=== PATIENT | male | born 1995 | race American Indian/Alaskan Native ===

== ENCOUNTER 2016-07-03 08:47 | Emergency (ER) | payer MEDICARE ==
[2016-07-03 08:57] VITALS: BP 133/81
[2016-07-03] MEDS ORDERED: PROVENTIL IH ONE (09:24)
[2016-07-03] MEDS ORDERED: DELTASONE PO ONE (09:26)
--- NOTE | 2016-07-03 09:27 | Emergency Department Report ---
Minor Respiratory - HPI Chief Complaint: Upper Respiratory Infection Stated Complaint: COUGH Duration: 4 Days Severity: moderate Minor Respiratory: Yes Able to Tolerate Fluids, Yes Cough, No Rhinorrhea, No Sore Throat, No Ear Pain, No Sick Contacts, No Hemoptysis, No Chest Pain, No Shortness of Breath, No Fever Other History: 21-year-old -Turkish male with a past medical history of hyperlipidemia, GERD, IBS, bipolar, recovering drug addict comes in today for a cough for 4-5 days. Patient reports he is currently staying at [facility]. Patient denies any fever denies any chills does report of nausea and just feeling tight. Patient has tried no [id number] medication. ED Review of Systems ROS: Stated complaint: COUGH Other details as noted in HPI ED Past Medical Hx - Past Medical History Previous Medical History?: Yes Hx Psychiatric Treatment: Yes (Drug abuse, Bipolar) - Surgical History Past Surgical History?: Yes Additional Surgical History: Right hand surgery - Social History Smoking Status: Current Every Day Smoker Substance Use Type: Prescribed - Medications Home Medications: Home Medications Medication Instructions Recorded Confirmed Last Taken Type ALBUTEROL Inhaler [ProAir HFA 2 puff IH QID PRN #1 inhalation 07/03/16 Unknown Rx Inhaler] Benztropine [Cogentin] 1 mg PO BID 07/03/16 07/03/16 07/03/16 History carBAMazepine [TEGretol] 200 mg PO Q12HR 07/03/16 07/03/16 07/03/16 History guaiFENesin DM [Robitussin Dm] 10 ml PO Q6HR #120 udc 07/03/16 Unknown Rx traZODone [Desyrel] 100 mg PO QHS 07/03/16 07/03/16 07/02/16 History Minor Respiratory Exam - Exam General: Vital signs noted. No distress. Alert and acting appropriately. HEENT: Yes Moist Mucous Membranes, No Pharyngeal Erythema, No Pharyngeal Exudates, No Rhinorrhea, No Conjuctival Injection, No Frontal Tenderness, No Maxillary Tenderness Ear: Neither TM Bulge, Neither TM Erythema, Neither EAC Pain, Neither EAC Discharge Neck: Yes Supple, No Adenopathy Lungs: Yes Wheezes (expiratory wheeze), Yes Ronchi, Yes Stridor, No Cough, No Labored Respirations, No Retractions, No Use of Accessory Muscles, No Other Abnormal Lung Sounds Heart: Yes Regular, No Murmur Abdomen: Yes Normal Bowel Sounds, No Tenderness, No Peritoneal Signs Skin: No Rash, No Edema Neurologic: Alert and oriented, no deficits. Musculoskeletal: Unremarkable. ED Course Vital Signs 07/03/16 08:54 Temperature 98.1 F Pulse Rate 93 H Respiratory 20 Rate Blood Pressure 133/81 O2 Sat by Pulse 97 Oximetry - Reevaluation(s) Reevaluation #1: 07/03/16 10:35 Patient reports that he feels much better after having the nebulizer treatment. ED Medical Decision Making - Medical Decision Making Patient has been evaluated by this provider fast tach. Discussed the patient that I would give him a albuterol treatment and we would discharge patient to go home on and inhaler. Patient verbalized understanding Critical care attestation.: If time is entered above; I have spent that time in minutes in the direct care of this critically ill patient, excluding procedure time. ED Disposition Clinical Impression: Cough Disposition: DISCHARGED TO HOME OR SELFCARE Is pt being admited?: No Does the pt Need Aspirin: No Condition: Stable Instructions: Reactive Airways Disease (ED) Additional Instructions: Please use albuterol inhaler as prescribed. Take the cough medication as prescribed. Follow up with her primary care provider I have listed one below if you do not have one. Prescriptions: ALBUTEROL Inhaler [ProAir HFA Inhaler] 2 puff IH QID PRN #1 inhalation PRN Reason: Shortness Of Breath guaiFENesin DM [Robitussin Dm] 10 ml PO Q6HR #120 [facility] [place]errals: PRIMARY CARE [Primary Care Provider] - 3-5 Days [facility] [Provider Group] - 3-5 Days Forms: Work/School Release Form(ED)
== END 2016-07-03 10:51 | disposition home or self-care (01) ==
LOC: ED 08:47
DX: R05 Cough (principal); F31.9 Bipolar disorder, unspecified; F17.200 Nicotine dependence, unspecified, uncomplicated
CPT/HCPCS: 94640; 99283; J7512

== ENCOUNTER 2019-07-18 15:19 | Emergency (ER) | payer MEDICARE ==
--- NOTE | 2019-07-18 15:50 | Event Note ---
Date: 07/18/19 Verbal report received from emergency medical services 24-year-old gentleman brought to the hospital by EMS with a complaint of heroin overdose, nontraumatic, found in bed, apparently by significant other, improved with Narcan. In the emergency room, the patient is sleepy but arousable, moving 4 extremities and protecting his airway at this time. Intention of overdose is unknown at this time. He is placed on a room, on a monitor, as needed Narcan needed, appropriate medications and orders have been initiated. Vital Signs 07/18/19 15:43 Temperature 97.6 F Pulse Rate 112 H Respiratory 20 Rate Blood Pressure 113/52 [Left] O2 Sat by Pulse 97 Oximetry
--- NOTE | 2019-07-18 16:34 | Emergency Department Report ---
History of Present Illness - General Chief Complaint: Overdose Stated Complaint: OD Time Seen by Provider: 07/18/19 16:05 Source: patient, EMS Mode of arrival: Stretcher Limitations: No Limitations - History of Present Illness Initial Comments: Patient is a 24-year-old male that presents emergency room with complaints of overdose on heroin. Patient states he is a drug addict to heroin. Patient states he is overdosed a few times. Patient states he is not sure how much he took. Patient states he was given Narcan by EMS and he woke up. Patient denies chest pain. Patient denies shortness of breath. Patient denies fever and chills. Patient denies confusion. Patient states he is not having pain. Patient states he uses IV heroin. Patient states she has a history of high cholesterol GERD and hepatitis C. patient states he desires rehab. Patient denies recent travel. Patient denies recent international travel. Patient denies exposure to the novel coronavirus. Patient denies sick contacts. Patient denies fever and chills. Patient denies cough. Patient denies diarrhea. Patient denies coming in contact with anybody with symptoms of the novel coronavirus. Complaint: accidental overdose -: Sudden Context: Accidental Overdose: wanted to get high Treatments Prior to Arrival: oxygen, narcan - Related Data Home Medications Medication Instructions Recorded Confirmed Last Taken Benztropine [Cogentin] 1 mg PO BID 07/03/16 07/03/16 07/03/16 carBAMazepine [TEGretol] 200 mg PO Q12HR 07/03/16 07/03/16 07/03/16 traZODone [Desyrel] 100 mg PO QHS 07/03/16 07/03/16 07/02/16 Previous Rx's Medication Instructions Recorded Last Taken Type Albuterol INH(or & Nicu Only) 2 puff IH QID PRN #1 inhalation 07/03/16 Unknown Rx [ProAir HFA Inhaler] guaiFENesin DM [Robitussin Dm] 10 ml PO Q6HR #120 udc 07/03/16 Unknown Rx Allergies Allergy/AdvReac Type Severity Reaction Status Date / Time No Known Allergies Allergy Verified 07/18/19 15:47 ED Review of Systems ROS: Stated complaint: OD Other details as noted in HPI Constitutional: denies: chills, fever Eyes: denies: eye pain, eye discharge, vision change ENT: denies: ear pain, throat pain Respiratory: denies: cough, shortness of breath, wheezing Cardiovascular: denies: chest pain, palpitations Endocrine: no symptoms reported Gastrointestinal: denies: abdominal pain, nausea, diarrhea Genitourinary: denies: urgency, dysuria Musculoskeletal: denies: back pain, joint swelling, arthralgia Skin: denies: rash, lesions Neurological: denies: headache, weakness, paresthesias Psychiatric: denies: anxiety, depression Hematological/Lymphatic: denies: easy bleeding, easy bruising ED Past Medical Hx - Past Medical History Previous Medical History?: Yes Hx GERD: Yes Hx Psychiatric Treatment: Yes (Drug abuse, Bipolar) Additional medical history: High cholesterol, hep C - Surgical History Past Surgical History?: Yes Additional Surgical History: Right hand surgery - Family History Family history: no significant - Social History Smoking Status: Never Smoker Substance Use Type: Alcohol, Heroin, Methamphetamines - Medications Home Medications: Home Medications Medication Instructions Recorded Confirmed Last Taken Type Albuterol INH(or & Nicu Only) 2 puff IH QID PRN #1 inhalation 07/03/16 Unknown Rx [ProAir HFA Inhaler] Benztropine [Cogentin] 1 mg PO BID 07/03/16 07/03/16 07/03/16 History carBAMazepine [TEGretol] 200 mg PO Q12HR 07/03/16 07/03/16 07/03/16 History guaiFENesin DM [Robitussin Dm] 10 ml PO Q6HR #120 udc 07/03/16 Unknown Rx traZODone [Desyrel] 100 mg PO QHS 07/03/16 07/03/16 07/02/16 History ED Physical Exam - General Limitations: No Limitations General appearance: alert, in no apparent distress - Head Head exam: Present: atraumatic, normocephalic - Eye Eye exam: Present: normal appearance - ENT ENT exam: Present: mucous membranes moist - Neck Neck exam: Present: normal inspection - Respiratory Respiratory exam: Present: normal lung sounds bilaterally. Absent: respiratory distress, wheezes, rales - Cardiovascular Cardiovascular Exam: Present: regular rate, normal rhythm. Absent: systolic murmur, diastolic murmur, rubs, gallop - GI/Abdominal GI/Abdominal exam: Present: soft, normal bowel sounds - Rectal Rectal exam: Present: deferred - Extremities Exam Extremities exam: Present: normal inspection - Back Exam Back exam: Present: normal inspection - Neurological Exam Neurological exam: Present: alert, oriented X3 - Psychiatric Psychiatric exam: Present: normal affect, normal mood - Skin Skin exam: Present: warm, dry, intact, normal color. Absent: rash ED Course Vital Signs 07/18/19 07/18/19 07/18/19 15:36 15:43 15:45 Temperature 97.6 F Pulse Rate 119 H 112 H 106 H Respiratory 20 19 Rate Blood Pressure 103/53 Blood Pressure 113/52 [Left] O2 Sat by Pulse 97 99 Oximetry 07/18/19 07/18/19 07/18/19 16:00 16:16 16:19 Temperature Pulse Rate 107 H 120 H Respiratory 13 20 Rate Blood Pressure 97/54 118/67 Blood Pressure [Left] O2 Sat by Pulse 100 97 100 Oximetry 07/18/19 07/18/19 18:45 21:16 Temperature Pulse Rate 100 H 90 Respiratory 17 17 Rate Blood Pressure Blood Pressure 142/71 127/64 [Left] O2 Sat by Pulse 97 96 Oximetry - Reevaluation(s) Reevaluation #1: Patient off oxygen. Patient awake alert and oriented. We will continue to monitor patient. Mental health is going to see the patient. 07/18/19 17:00 Reevaluation #2: Patient became hypoxic and increased lethargy. Patient is easily arousable and answers questions appropriately. Patient's speech is a little more slurred. Patient was given fluids and another dose of Narcan. Patient placed on oxygen. 07/18/19 18:15 Reevaluation #3: Patient given a total of 0.5 mg of Narcan. Patient's oxygen improved. Patient is awake again. Patient is awake alert and oriented x3. We will continue to monitor patient. 07/18/19 18:44 Reevaluation #4: Patient is currently 96%. Patient is completely awake alert and oriented. Patient states he is feeling better. 07/18/19 19:22 Reevaluation #5: Patient sleeping again. Patient given another 0.3 of Narcan. Patient's oxygen saturation stable. 07/18/19 20:00 Patient awake alert and oriented again. Patient states he is ready to go. Patient gave us urine and we will do a UDS and a UA. 07/18/19 20:36 Patient awake alert and oriented. Patient's oxygen stable. Patient answering questions appropriately. 07/18/19 20:46 I discussed all results and clinical findings with patient. I discussed plan of care with patient. Patient agrees with plan of care. Patient is stable for discharge. Patient will be discharged home. Patient given discharge instru ctions. Patient voiced understanding of discharge instructions. 07/18/19 20:58 ED Medical Decision Making - Lab Data Result diagrams: 07/18/19 16:21 07/18/19 16:21 - EKG Data -: EKG Interpreted by Me EKG shows normal: sinus rhythm, axis, intervals, QRS complexes, ST-T waves Rate: tachycardia - Medical Decision Making Patient is a 24-year-old male that presents emergency room with complaints of an accidental heroin overdose. Patient was given Narcan by EMS. Patient was given Narcan in the ER. Patient responded well to treatment. Patient remained alert and oriented after his last dose of Narcan. Patient requested rehab. Patient was given resources. Patient encouraged to contact 1 of the facilities in his discharge instructions. Patient's labs were essentially unremarkable. Patient was given fluids. - Differential Diagnosis Overdose, drug abuse Critical Care Time: Yes Critical care time in (mins) excluding proc time.: 45 Critical care attestation.: If time is entered above; I have spent that time in minutes in the direct care of this critically ill patient, excluding procedure time. Critical Care Time: 45 minutes ED Disposition Clinical Impression: Polysubstance abuse Heroin overdose Qualifiers: Encounter type: initial encounter Injury intent: accidental or unintentional Qualified Code(s): T40.1X1A - Poisoning by heroin, accidental (unintentional), initial encounter Disposition: DC-01 TO HOME OR SELFCARE Is pt being admited?: No Does the pt Need Aspirin: No Condition: Stable Instructions: Narcotic Abuse (ED) Additional Instructions: Patient to follow-up with primary care in 2 to 3 days. Patient to follow-up with a rehabilitation center as soon as possible. Patient to contact 1 of the numbers below. Patient to rest. Patient to increase water. Patient to avoid drug use. Patient to take Tylenol or ibuprofen as needed for pain. Patient to return to the ER if condition worsens, changes or new symptoms arise. In case of an emergency, please contact the following numbers: ID Crisis and Access Line: Number: Crisis Text Line: (Text START) Number: [id number] Suicide Prevention Line: Number: Emergency Number: 911 SUBSTANCE ABUSE PROGRAMS: [facility] Address: [address] [place] [address] [facility]: Address: [address] [place] [address] [facility]: Address: [address] [place] [address] [facility]: Address: [address] [place] [address] [facility]: Address: [address] [place] [address] [facility] Address: [address] [place] [id number]. Please contact above numbers to attempt placement into free based program. [facility], [facility] [address] [place] [place], [place] [id number] Carlos Cage MD: [address] [place], [place] [id number] [facility]: [address] [place], [place] [id number] [place] [address] [phone] [facility]: [address] [facility] [place], [place] [id number] [phone] [facility]: [address] [place], [place] Jaspal Ayon MD: [address] [facility] [id number] [facility]: [address] [facility] [address] [place], [place] [id number] [phone] ID CRISIS AND ACCESS LINE: [phone] Referrals: TINO GUTIERREZ MD [Primary Care Provider] - 2-3 Days Time of Disposition: 21:01
[2019-07-18 16:58] LABS: BUN/Creatinine Ratio 12; Blood Urea Nitrogen 14 mg/dL (9-20); Calcium 8.6 mg/dL (8.4-10.2); Hemolysis Index 16
[2019-07-18 16:59] LABS: Hemoglobin 15.1 gm/dl (11.8-15.2); Mean Corpuscular HGB Conc 32 % (32-34); Mean Corpuscular Volume 80 fl (84-94); Platelet Count 354 K/mm3 (140-440); Red Blood Count 5.86 M/mm3 (3.65-5.03); Red Cell Distribution Width 13.9 % (13.2-15.2)
[2019-07-18] MEDS ORDERED: SODIUM CHLORIDE 0.9% 1000 ML 1,000 ML IV ONE ×2 (17:18→20:00)
[2019-07-18] MEDS: NALOXONE 0.4 MG/1 ML INJ IV PRN ×9 (18:24→20:01)
[2019-07-18 20:49] LABS: Bacteria,Urine 1+ /HPF (Negative); Bilirubin,Urine NEG (Negative); Blood,Urine SM (Negative); Color,Urine Yellow (Yellow); Mucus,Urine 2+ /HPF; Urobilinogen,Urine < 2.0 mg/dL (<2.0)
[2019-07-18 20:54] LABS: Benzodiazepines Screen,Urine PRESUMPTIVE NEGATIVE; Cannabinoid Screen,Urine PRESUMPTIVE NEGATIVE; Methadone Screen,Urine PRESUMPTIVE NEGATIVE
[2019-07-18 21:05] LABS: Amphetamine Screen,Urine PRESUMPTIVE POSITIVE; Cocaine Screen,Urine PRESUMPTIVE POSITIVE; Opiate Screen,Urine PRESUMPTIVE POSITIVE
[2019-07-18 21:17] VITALS: BP 127/64
== END 2019-07-18 21:17 | disposition home or self-care (01) ==
LOC: ED 15:19
DX: T40.1X1A Poisoning by heroin, accidental (unintentional), initial encounter (principal); F19.10 Other psychoactive substance abuse, uncomplicated; K21.9 Gastro-esophageal reflux disease without esophagitis; F31.9 Bipolar disorder, unspecified; Z98.890 Other specified postprocedural states; Z79.899 Other long term (current) drug therapy
CPT/HCPCS: 36415; 80048; 80307; 81001; 82550; 83735; 85027; 87086; 93005; 99291; J2310; J7030; 80320; G0480

== ENCOUNTER 2019-08-02 22:19 | Emergency (ER) | payer MEDICARE ==
[2019-08-02] MEDS ORDERED: ONDANSETRON 4 MG ODT TAB PO ONE (22:36)
--- NOTE | 2019-08-02 22:42 | Emergency Department Report ---
ED Shortness of Breath HPI - General Chief Complaint: Dyspnea/Respdistress Stated Complaint: FATIGUE, SHORTNESS OF BREATH, NAUSEA Time Seen by Provider: 08/02/19 22:30 Source: patient Mode of arrival: Stretcher Limitations: No Limitations - History of Present Illness Initial Comments: Mr. Pulido is a 24 yo male with hx of heroin dependence who presents with shortness of breath and fatigue via EMS. He was concerned about possible COVID 19 exposure. He has a roommate who was recently hospitalized for unknown reason. He wants to ensure that he does not have COVID infection. Denies fever or cough. MD Complaint: shortness of breath -: Gradual, days(s) (1) Severity: mild Consistency: constant Improves With: nothing Worsens With: nothing Associated Symptoms: denies other symptoms - Related Data Home Medications Medication Instructions Recorded Confirmed Last Taken Benztropine [Cogentin] 1 mg PO BID 07/03/16 07/03/16 07/03/16 carBAMazepine [TEGretol] 200 mg PO Q12HR 07/03/16 07/03/16 07/03/16 traZODone [Desyrel] 100 mg PO QHS 07/03/16 07/03/16 07/02/16 Previous Rx's Medication Instructions Recorded Last Taken Type Albuterol INH(or & Nicu Only) 2 puff IH QID PRN #1 inhalation 07/03/16 Unknown Rx [ProAir HFA Inhaler] guaiFENesin DM [Robitussin Dm] 10 ml PO Q6HR #120 udc 07/03/16 Unknown Rx Allergies Allergy/AdvReac Type Severity Reaction Status Date / Time No Known Allergies Allergy Verified 07/18/19 15:47 ED Review of Systems ROS: Stated complaint: FATIGUE, SHORTNESS OF BREATH, NAUSEA Other details as noted in HPI Comment: All other systems reviewed and negative Constitutional: malaise. denies: chills, fever Respiratory: shortness of breath. denies: cough Cardiovascular: denies: chest pain Gastrointestinal: nausea ED Past Medical Hx - Past Medical History Previous Medical History?: Yes Hx GERD: Yes Hx Psychiatric Treatment: Yes (Drug abuse, Bipolar) Additional medical history: High cholesterol, hep C - Surgical History Past Surgical History?: Yes Additional Surgical History: Right hand surgery - Social History Smoking Status: Current Every Day Smoker Substance Use Type: None - Medications Home Medications: Home Medications Medication Instructions Recorded Confirmed Last Taken Type Albuterol INH(or & Nicu Only) 2 puff IH QID PRN #1 inhalation 07/03/16 Unknown Rx [ProAir HFA Inhaler] Benztropine [Cogentin] 1 mg PO BID 07/03/16 07/03/16 07/03/16 History carBAMazepine [TEGretol] 200 mg PO Q12HR 07/03/16 07/03/16 07/03/16 History guaiFENesin DM [Robitussin Dm] 10 ml PO Q6HR #120 udc 07/03/16 Unknown Rx traZODone [Desyrel] 100 mg PO QHS 07/03/16 07/03/16 07/02/16 History ED Physical Exam - General Limitations: No Limitations General appearance: alert, in no apparent distress - Head Head exam: Present: atraumatic, normocephalic - Eye Eye exam: Present: normal appearance - ENT ENT exam: Present: mucous membranes moist - Neck Neck exam: Present: normal inspection, full ROM - Respiratory Respiratory exam: Present: normal lung sounds bilaterally. Absent: respiratory distress, wheezes, rales, rhonchi - Cardiovascular Cardiovascular Exam: Present: regular rate, normal rhythm, normal heart sounds. Absent: systolic murmur, diastolic murmur, rubs, gallop - GI/Abdominal GI/Abdominal exam: Present: soft, normal bowel sounds. Absent: distended, tenderness, guarding, rebound - Rectal Rectal exam: Present: deferred - Extremities Exam Extremities exam: Present: normal inspection - Neurological Exam Neurological exam: Present: alert, oriented X3 - Psychiatric Psychiatric exam: Present: normal affect, normal mood - Skin Skin exam: Present: warm, dry, intact, normal color. Absent: rash ED Medical Decision Making - Radiology Data Radiology results: report reviewed Chest radiograph 2 view PA lateral: No acute findings according to radiology impression - Medical Decision Making Mr. Pulido appears well without respiratory distress or pneumonia. I provided education regarding COVID 19. I recommended self isolation and distancing from roommate. Discharged home. Critical care attestation.: If time is entered above; I have spent that time in minutes in the direct care of this critically ill patient, excluding procedure time. ED Disposition Clinical Impression: Viral syndrome Disposition: - TO HOME OR SELFCARE Is pt being admited?: No Does the pt Need Aspirin: No Condition: Stable Instructions: COVID-19 Referrals: JAIME MONTERO MD [Staff Physician] - 3-5 Days
--- NOTE | 2019-08-02 23:02 | XRay Report ---
CHEST 2 VIEWS INDICATION / CLINICAL INFORMATION: MAIN: shortness of breath; Pt came in due to SOB, Fatigue and nausea for 3 days. Said he had possibl e exposure with a possible coivd.. COMPARISON: None available. FINDINGS: SUPPORT DEVICES: None. HEART / MEDIASTINUM: No significant abnormality. LUNGS / PLEURA: No significant pulmonary or pleural abnormality. No pneumothorax. ADDITIONAL FINDINGS: No significant additional findings. IMPRESSION: 1. No acute findings. Signer Name: Anton Oro MD Signed: 08/02/2019 10:57 PM Workstation Name: [id number]
[2019-08-02 23:52] VITALS: BP 129/75
== END 2019-08-02 23:10 | disposition home or self-care (01) ==
LOC: ED 22:19
DX: B34.9 Viral infection, unspecified (principal); K21.9 Gastro-esophageal reflux disease without esophagitis; E78.00 Pure hypercholesterolemia, unspecified; F31.9 Bipolar disorder, unspecified; F17.200 Nicotine dependence, unspecified, uncomplicated; Z98.890 Other specified postprocedural states; Z79.899 Other long term (current) drug therapy
CPT/HCPCS: 71046; Q0162